=== PATIENT | male | born 1975 | race Caucasian/White ===

== ENCOUNTER 2021-04-23 10:13 | Observation (INO) ==
[2021-04-23] MEDS ORDERED: FAMOTIDINE 20MG IV PUSH 20 MG/5 ML SYR IV STA (10:45)
[2021-04-23] MEDS ORDERED: SODIUM CHLORIDE 0.9% 1000ML 1,000 ML IV ONE (10:45)
[2021-04-23] MEDS ORDERED: ONDANSETRON INJ 2 MG/ML 2 ML VIAL IV STA (10:45)
[2021-04-23 12:03] LABS: Basophils # (auto) 0.03 K/uL (0-0.2); Basophils % (auto) 0.5 %; Eosinophils # (auto) 0.37 K/uL (0-0.5); Eosinophils % (auto) 5.9 %; Hematocrit (blood only) 42.1 % (42-52); Hemoglobin 14.9 g/dL (14.0-18.0); Immature Granulocytes # (auto) 0.01 K/uL (0.00-0.02); Immature Granulocytes % (auto) 0.2 %; Lymphocytes # (auto) 1.42 K/uL (1.2-3.4); Lymphocytes % (auto) 22.7 %; Mean Corpuscular Hemoglobin 30.2 pg (25-34); Mean Corpuscular Hgb Conc 35.4 g/dL (32-36); Mean Corpuscular Volume 85.2 fL (80-100); Mean Platelet Volume 9.5 fL (7.4-10.4); Monocytes # (auto) 0.79 K/uL (0.11-0.59); Monocytes % (auto) 12.6 %; Neutrophils # (auto) 3.63 K/uL (1.4-6.5); Neutrophils % (auto) 58.1 %; Platelet Count 200 K/uL (130-400); RDW Standard Deviation 43.5 fL (36.4-46.3); Red Blood Count 4.94 M/uL (4.7-6.1); White Blood Count 6.25 K/uL (4.8-10.8)
[2021-04-23 12:24] LABS: Albumin Level 3.2 gm/dl (3.4-5.0); BUN Creatinine Ratio 15.6 (10-20); Creatinine Clr Calc Pharmacy 157.3 ml/min; Est GFR (African American) 122.8 ml/min
[2021-04-23 12:25] LABS: Potassium 3.4 mmol/L (3.5-5.1)
[2021-04-23 12:29] LABS: Albumin Globulin Ratio 0.8 (0.9-2); Bilirubin,Total 0.4 mg/dl (0.2-1); Total Protein 7.2 gm/dl (6.4-8.2); Troponin I 0.125 ng/ml (0-0.045)
[2021-04-23] MEDS ORDERED: ACETAMINOPHEN 1,000 MG/100 ML VIAL IV STA (12:36)
--- NOTE | 2021-04-23 12:47 | XRay Report ---
XR chest 2V PA/lateral CLINICAL HISTORY: abdominal pain, chest pain COMPARISON STUDY: 04/21/2021 FINDINGS: The heart is borderline enlarged. There is no failure. There is no focal pulmonary consolid ation. There are no pleural effusions. There is no evidence of free intraperitoneal air.[ IMPRESSION: No active disease in the chest. ACT 112: Negative or not required by law. Electronically signed by: Garcia Medina M.D. 04/23/2021 12:46 PM
[2021-04-23] MEDS ORDERED: AZITHROMYCIN 500 MG in DEXTROSE 5% 250 ML IV STA (14:12)
[2021-04-23] MEDS ORDERED: POTASSIUM CHLORIDE CRTAB 20 MEQ TABCR PO STA (14:35)
--- NOTE | 2021-04-23 15:42 | History & Physical Report ---
Date of Service April 23, 2021 Assessment & Plan (1) Campylobacter gastroenteritis: (2) Ileocolitis: (3) Diarrhea: (4) Fever: (5) GERD (gastroesophageal reflux disease): (6) DVT prophylaxis: Patient placed on IV antibiotics, supportive care, IV fluids, will try to feed him. History of Present Illness Chief Complaint: Chest pain, nausea, vomiting, diarrhea Primary Care Provider: Zaheer Freeman MD 45-year-old male with a past medical history of hypertension and occasional dysphagia who comes in today complaining of nausea, vomiting, and diarrhea. He was here earlier this week complaining of the same symptoms and sent home on doxycycline. Today he returns and coincidently they were going to call him to tell him he was positive for Campylobacter. He has been sick since Sunday, he is having abdominal pain, chest pain, nausea vomiting and diarrhea and he was not getting any better so he came back today to be reevaluated. past medical history-hypertension, occasional dysphagia Past surgical historycholecystectomy, tonsils and adenoids been removed, sinus surgery, left knee surgery from trauma No known drug allergies Medications are omeprazole and chlorthalidone Family historyFather had CAD and of suicide, mother is alive and relatively healthy he has a healthy son Social historysmokes 2 to 3 packs a day at times for 20 years quit in August 2020, he is , denies alcohol or drug use Allergies Allergy/AdvReac Type Severity Reaction Status Date / Time No Known Allergies Allergy Verified 04/23/21 11:23 Home Medications Medication Instructions Recorded Confirmed Type omeprazole 20 mg PO PM 02/14/19 04/23/21 History chlorthalidone 25 mg PO HS 04/21/21 04/23/21 History doxycycline hyclate 100 mg PO Q12H 7 Days #14 cap 04/21/21 04/23/21 Rx potassium chloride [Klor-Con M20] 20 meq PO TID #9 tabs 04/21/21 04/23/21 Rx Past Med/Surg History Medical History Stomach problems Surgical History No significant past surgical history Family History Other Cancer Gallbladder disease Hypertension Social History Smoking Status: Former smoker marital status: Current Living Situation: Spouse current occupational status: employed Feels Safe at Home: Yes Review of Systems Review of Systems: ROS-No Headache, No Visual Changes, positive nausea, positive vomiting, No Fever, positive chills, No Neck Pain or Stiffness, positive chest Pain, No Palpitations, No SOB, No WEBB, No Cough, No Sputum, No Wheezing, positive abdominal Pain, No Diarrhea, No Hematemesis, No Hemoptysis, No Unexpected Weight Loss, No Flank pain, No Melena, No Hematochezia, No Frequency, No Urgency, No Burning, No Hematuria, No Rashes, No Diaphoresis. Appetite is Normal Physical Exam Physical Exam: Physical Exam Gen-AAO x 3, NAD, Afebrile Head-NCAT, EOMI, PERRLA, Anicteric Sclera, No Posterior Pharyngeal Erythema Neck-Supple, No JVD, No Thyromegaly, No Masses, No LAD, No Bruits Lungs-Clear to Auscultation Bilaterally, No Rales, No Rhonchi, No Wheezing, No Crepitus Chest-No S4, +S1, +S2, No S3, No Murmurs, No Rubs, No Gallops, No Ectopy Abdomen-Soft, Bowel Sounds Present, Tender, Non Distended, No Hepatomegaly, No Splenomegaly, No Palpable Masses, No Rebound, No Rigidity, No Guarding Musculoskeletal-Full Range of Motion Bilaterally, No CVAT Extremities-No Cyanosis, No Clubbing, No Edema Nuero-Cranial Nerves II-XII grossly intact, Motor WNL, DTRs WNL, Strength WNL, Non Focal Psych-Normal Mood Results & Data Results & Data ([facility]) Vital Signs (Past 12 Hours) Vital Signs Temp Pulse Pulse Resp BP BP Pulse Ox 04/23/21 14:00 61 17 127/79 98 04/23/21 13:00 58 L 20 141/88 H 97 04/23/21 12:54 59 L 20 131/88 97 04/23/21 12:00 62 18 131/88 93 04/23/21 11:55 61 21 128/77 93 04/23/21 10:46 93 04/23/21 10:27 36.8 C 65 18 136/93 96 04/23/21 10:14 36.8 C 73 18 176/93 H 98 Allergies No Known Allergies Allergy (Verified 04/23/21 11:23) Height/Weight/Isolation Height 6 ft 3 in Weight 124 kg Chemistry 04/23/21 11:36 Sodium 138 Potassium 3.4 L D Chloride 105 Carbon Dioxide 29 Anion Gap 5.0 BUN 13 Creatinine 0.85 Glucose 93 Code Status & VTE Plan VTE Prophylaxis Plan VTE Prophylaxis will be ordered: Yes
--- NOTE | 2021-04-23 16:33 | Emergency Department Note ---
History of Present Illness General Chief complaint: Illness Stated complaint: CHEST PAIN,VOMITING,DIARRHEA ABD PAIN,HEADACHE Time Seen by Provider: 04/23/21 10:33 Source: patient Mode of arrival: ambulatory Limitations: no limitations History of Present Illness Maximum Pain Intensity: 4 This patient is a 45-year-old male who presents to the emergency department for evaluation of diarrhea, vomiting, dehydration, headache and chest pain. Patient was seen here a few days ago for similar symptoms. He states that he was feeling better on discharge, but his symptoms returned and worsened today. He has been vomiting today and is unable to keep anything down. He has pain in his upper abdomen and burning pain throughout his chest. He states that his "kidneys hurt" but points to his lower back. He has had continued diarrhea, denies any blood in the stools. He was placed on doxycycline for possible tickborne illness but has been unable to keep this medication down. He rates his discomfort 7/10. He states that he feels very weak and dehydrated. Home Medications Medication Instructions Recorded Confirmed Type omeprazole 20 mg PO PM 02/14/19 04/23/21 History chlorthalidone 25 mg PO HS 04/21/21 04/23/21 History potassium chloride [Klor-Con M20] 20 meq PO TID #9 tabs 04/21/21 04/23/21 Rx azithromycin 500 mg PO DAILY 5 Days #5 tab 04/24/21 Rx Allergies Allergy/AdvReac Type Severity Reaction Status Date / Time No Known Allergies Allergy Verified 04/23/21 11:23 Past Med/Surg History Medical History Stomach problems Surgical History No significant past surgical history Family History Other Cancer Gallbladder disease Hypertension Social History Smoking Status: Former smoker Second Hand Exposure: No; Do You Dip or Chew Tobacco: Yes; Hx Alcohol Use: Yes Hx Substance Use: No Preferred Language: Kosovan Communication Ability: Effective School Cleaner Required: No Beliefs That Will Affect Care: None marital status: Current Living Situation: Spouse current occupational status: employed Other Information That Helps Us Care for You: No Feels Safe at Home: Yes Safety Concerns: Feels Safe At This Time Assistive Devices: None Review of Systems A total of 10 systems reviewed and were otherwise negative Physical Exam Vital Signs Vital Signs - 24 hr 04/23/21 10:14 04/23/21 10:27 04/23/21 10:46 Temperature 36.8 C 36.8 C Temperature Source Temporal Artery Scan Temporal Artery Scan Pulse Rate 73 65 Pulse Rate [Apical] Pulse Rate from SpO2 Sensor Respiratory Rate 18 18 Blood Pressure 176/93 H 136/93 Blood Pressure [Right Arm] Blood Pressure Mean 120 107 Blood Pressure Mean [Right Arm] Pulse Oximetry 98 96 93 Oxygen Delivery Method Room Air Room Air Room Air Sepsis Recent Fever Within 48 Hours No No Sepsis New/Unexplained Change in Mental Status No No Sepsis Action Taken by Nursing No Action Required No Action Required 04/23/21 11:55 04/23/21 12:00 04/23/21 12:54 Temperature Temperature Source Pulse Rate 61 62 Pulse Rate [Apical] 59 L Pulse Rate from SpO2 Sensor 61 61 Respiratory Rate 21 18 20 Blood Pressure 128/77 131/88 Blood Pressure [Right Arm] 131/88 Blood Pressure Mean 94 102 Blood Pressure Mean [Right Arm] 102 Pulse Oximetry 93 93 97 Oxygen Delivery Method Room Air Sepsis Recent Fever Within 48 Hours Sepsis New/Unexplained Change in Mental Status Sepsis Action Taken by Nursing 04/23/21 13:00 04/23/21 14:00 04/23/21 14:30 Temperature Temperature Source Pulse Rate 58 L 61 61 Pulse Rate [Apical] Pulse Rate from SpO2 Sensor 59 L 61 Respiratory Rate 20 17 16 Blood Pressure 141/88 H 127/79 Blood Pressure [Right Arm] Blood Pressure Mean 105 95 Blood Pressure Mean [Right Arm] Pulse Oximetry 97 98 98 Oxygen Delivery Method Sepsis Recent Fever Within 48 Hours Sepsis New/Unexplained Change in Mental Status Sepsis Action Taken by Nursing 04/23/21 15:01 04/23/21 15:30 04/23/21 16:00 Temperature Temperature Source Pulse Rate 61 61 61 Pulse Rate [Apical] Pulse Rate from SpO2 Sensor 61 Respiratory Rate 16 18 23 Blood Pressure Blood Pressure [Right Arm] Blood Pressure Mean Blood Pressure Mean [Right Arm] Pulse Oximetry 96 Oxygen Delivery Method Sepsis Recent Fever Within 48 Hours Sepsis New/Unexplained Change in Mental Status Sepsis Action Taken by Nursing VITALS: Vitals are noted on the nurse's note and reviewed by myself. GENERAL: This is a 45-year-old male, in no acute distress, well-developed well- nourished. SKIN: The skin was without rashes. EARS: External auditory canals clear, tympanic membranes pearly leiva without erythema or effusion bilaterally. EYES: Pupils equal round and reactive to light and accommodation. NOSE: Patent, turbinates without inflammation or discharge. MOUTH: Mucous membranes somewhat dry. NECK: Supple without nuchal rigidity. No lymphadenopathy. HEART: Regular rate and rhythm without murmurs gallops or rubs. LUNGS: Clear to auscultation bilaterally without wheezes, rales or rhonchi. ABDOMEN: Positive bowel sounds x 4. Soft, mild tenderness across lower abdomen. No guarding or rebound tenderness. NEURO: Patient was alert and oriented to person place and time. Course Consultations Consultation #1: Dr. Carlisle [facility] hospitalist Administered Medications Discontinued Medications Chlorthalidone (Chlorthalidone 25 Mg Tab) 25 mg PO HS JACQUELYN Stop: 05/23/21 20:59 Last Admin: 04/23/21 20:01 Dose: 25 mg Documented by: [id number] Heparin Sodium (Porcine) (Heparin Sod 5,000 Unit/0.5 Ml Vial) 5,000 units SQ Q8 JACQUELYN Stop: 05/23/21 21:59 Last Admin: 04/24/21 04:28 Dose: 5,000 units Documented by: [id number] Admin: 04/23/21 20:02 Dose: 5,000 units Documented by: [id number] Sodium Chloride (Nss 1000ml) 1,000 mls @ 999 mls/hr IV .Q1H1M ONE Stop: 04/23/21 11:45 Last Infusion: 04/23/21 12:53 Dose: 0 mls/hr Documented by: [id number] Admin: 04/23/21 11:40 Dose: 999 mls/hr Documented by: [id number] Famotidine (Pepcid 20mg Iv Push) 20 mg in 5 mls @ 2.5 mls/min IV NOW STA Stop: 04/23/21 10:46 Last Admin: 04/23/21 11:42 Dose: 2.5 mls/min Documented by: [id number] Acetaminophen (Ofirmev) 1,000 mg in 100 mls @ 400 mls/hr IV NOW STA Stop: 04/23/21 12:50 Last Infusion: 04/23/21 13:11 Dose: 0 mls/hr Documented by: [id number] Admin: 04/23/21 12:53 Dose: 400 mls/hr Documented by: [id number] Azithromycin 500 mg/ Dextrose 255 mls @ 127.5 mls/hr IV NOW STA Stop: 04/23/21 16:11 Last Infusion: 04/23/21 18:17 Dose: 0 mls/hr Documented by: [id number] Admin: 04/23/21 15:08 Dose: 127.5 mls/hr Documented by: [id number] Sodium Chloride (Nss 1000ml) 1,000 mls @ 125 mls/hr IV .Q8H JACQUELYN Stop: 04/24/21 09:59 Last Infusion: 04/24/21 08:07 Dose: 0 mls/hr Documented by: [id number] Admin: 04/24/21 01:41 Dose: 125 mls/hr Documented by: [id number] Infusion: 04/24/21 01:41 Dose: 125 mls/hr Documented by: [id number] Admin: 04/23/21 18:25 Dose: 125 mls/hr Documented by: [id number] Azithromycin 500 mg/ Dextrose 255 mls @ 127.5 mls/hr IV Q24H JACQUELYN; Protocol Stop: 05/03/21 08:59 Last Admin: 04/24/21 08:03 Dose: Not Given Documented by: [id number] Melatonin (Melatonin 3 Mg Tab) 3 mg PO HS PRN PRN Reason: Sleep Stop: 05/23/21 21:19 Last Admin: 04/23/21 21:37 Dose: 3 mg Documented by: [id number] Ondansetron HCl (Ondansetron Inj 2 Mg/Ml 2 Ml Vial) 4 mg IV NOW STA Stop: 04/23/21 10:46 Last Admin: 04/23/21 11:40 Dose: 4 mg Documented by: [id number] Pantoprazole Sodium (Pantoprazole 40 Mg Tab) 40 mg PO PM JACQUELYN Stop: 05/23/21 20:59 Last Admin: 04/23/21 20:02 Dose: 40 mg Documented by: [id number] Potassium Chloride (Potassium Chloride Crtab 20 Meq Tabcr) 40 meq PO NOW STA Stop: 04/23/21 14:36 Last Admin: 04/23/21 15:08 Dose: 40 meq Documented by: [id number] Potassium Chloride (Potassium Chloride Crtab 20 Meq Tabcr) 20 meq PO TID JACQUELYN Stop: 05/23/21 20:59 Last Admin: 04/24/21 08:08 Dose: 20 meq Documented by: [id number] Admin: 04/23/21 20:01 Dose: 20 meq Documented by: [id number] Medical Decision Making Differential Diagnosis Gastroenteritis, food borne illness, infections, appendicitis, diverticulitis, inflammatory bowel disease, obstruction, GI bleed, biliary pathology, volvulus, as well as other pathologies. Home Medications Current Medication List: was personally reviewed by me Laboratory Data Attestation: I reviewed the patient's lab results. Result diagrams: 04/24/21 06:50 04/24/21 06:50 Lab Results 04/23/21 04/23/21 04/23/21 Range/Units 11:36 11:36 13:02 WBC 6.25 (4.8-10.8) K/uL RBC 4.94 (4.7-6.1) M/uL Hgb 14.9 (14.0-18.0) g/dL Hct 42.1 (42-52) % MCV 85.2 (80-100) fL MCH 30.2 (25-34) pg MCHC 35.4 (32-36) g/dL RDW Std Deviation 43.5 (36.4-46.3) fL RDW Coeff of Sukhdev 14.0 (11.5-14.5) % Plt Count 200 (130-400) K/uL MPV 9.5 (7.4-10.4) fL Immature Gran % (Auto) 0.2 % Neut % (Auto) 58.1 % Lymph % (Auto) 22.7 % Brooks % (Auto) 12.6 % Eos % (Auto) 5.9 % Baso % (Auto) 0.5 % Neut # (Auto) 3.63 (1.4-6.5) K/uL Lymph # (Auto) 1.42 (1.2-3.4) K/uL Brooks # (Auto) 0.79 H (0.11-0.59) K/uL Eos # (Auto) 0.37 (0-0.5) K/uL Baso # (Auto) 0.03 (0-0.2) K/uL Immature Gran # (Auto) 0.01 (0.00-0.02) K/uL Sodium 138 (136-145) mmol/L Potassium 3.4 L D (3.5-5.1) mmol/L Chloride 105 (98-107) mmol/L Carbon Dioxide 29 (21-32) mmol/L Anion Gap 5.0 (3-11) BUN 13 (7-18) mg/dl Creatinine 0.85 (0.6-1.4) mg/dl Est Cr Clr Drug Dosing 157.3 ml/min Est GFR ( Amer) 122.8 ml/min Est GFR (Non-Af Amer) 106.0 ml/min BUN/Creatinine Ratio 15.6 (10-20) Glucose 93 (70-99) mg/dl Lactate 1.0 (0.4-2.0) mmol/L Calcium 9.0 (8.5-10.1) mg/dl Total Bilirubin 0.4 D (0.2-1) mg/dl AST 20 (15-37) U/L ALT 15 (12-78) U/L Alkaline Phosphatase 77 (45-117) U/L Troponin I 0.125 H* (0-0.045) ng/ml Total Protein 7.2 (6.4-8.2) gm/dl Albumin 3.2 L (3.4-5.0) gm/dl Globulin 4.0 (2.5-4.0) gm/dl Albumin/Globulin Ratio 0.8 L (0.9-2) Lipase 151 (73-393) U/L Specimen Hemolysis COVID-19 Eval Order SARS-CoV-2 (PCR) (Negative) 04/23/21 04/23/21 Range/Units 14:30 14:30 WBC (4.8-10.8) K/uL RBC (4.7-6.1) M/uL Hgb (14.0-18.0) g/dL Hct (42-52) % MCV (80-100) fL MCH (25-34) pg MCHC (32-36) g/dL RDW Std Deviation (36.4-46.3) fL RDW Coeff of Sukhdev (11.5-14.5) % Plt Count (130-400) K/uL MPV (7.4-10.4) fL Immature Gran % (Auto) % Neut % (Auto) % Lymph % (Auto) % Brooks % (Auto) % Eos % (Auto) % Baso % (Auto) % Neut # (Auto) (1.4-6.5) K/uL Lymph # (Auto) (1.2-3.4) K/uL Brooks # (Auto) (0.11-0.59) K/uL Eos # (Auto) (0-0.5) K/uL Baso # (Auto) (0-0.2) K/uL Immature Gran # (Auto) (0.00-0.02) K/uL Sodium (136-145) mmol/L Potassium (3.5-5.1) mmol/L Chloride (98-107) mmol/L Carbon Dioxide (21-32) mmol/L Anion Gap (3-11) BUN (7-18) mg/dl Creatinine (0.6-1.4) mg/dl Est Cr Clr Drug Dosing ml/min Est GFR ( Amer) ml/min Est GFR (Non-Af Amer) ml/min BUN/Creatinine Ratio (10-20) Glucose (70-99) mg/dl Lactate (0.4-2.0) mmol/L Calcium (8.5-10.1) mg/dl Total Bilirubin (0.2-1) mg/dl AST (15-37) U/L ALT (12-78) U/L Alkaline Phosphatase (45-117) U/L Troponin I (0-0.045) ng/ml Total Protein (6.4-8.2) gm/dl Albumin (3.4-5.0) gm/dl Globulin (2.5-4.0) gm/dl Albumin/Globulin Ratio (0.9-2) Lipase (73-393) U/L Specimen Hemolysis COVID-19 Eval Order Covid19 at [facility] SARS-CoV-2 (PCR) NEGATIVE (Negative) Imaging Data Attestation: I personally reviewed and interpreted this imaging study as follows: Radiologist's Impression: Chest X-Ray 04/23/21 10:45 XR chest 2V PA/lateral CLINICAL HISTORY: abdominal pain, chest pain COMPARISON STUDY: 04/21/2021 FINDINGS: The heart is borderline enlarged. There is no failure. There is no focal pulmonary consolidation. There are no pleural effusions. There is no evidence of free intraperitoneal air.[ IMPRESSION: No active disease in the chest. ACT 112: Negative or not required by law. Electronically signed by: Garcia Medina M.D. 04/23/2021 12:46 PM MDM Narrative Continuous alarm security or surveillance monitor: Order was placed for continuous alarm security or surveillance monitor. Patient was placed on the alarm security or surveillance monitor. Patient was noted to be in normal sinus rhythm at an initial rate of 65 bpm. The patient is a 45-year-old male who presents today complaining of abdominal cramping, diarrhea, vomiting, chest pain and headaches. Patient was seen here 2 days ago for the same symptoms. He tested positive for Campylobacter and was informed of this. Labs today are unremarkable except for an elevated troponin. Given patient's chest pain and elevated troponin, I do feel he should be kept for admission/observation to trend the troponin. He was given IV hydration and Toradol. He verbalized understanding of my assessment and treatment plan. [facility] the patient. Impression & Plan Campylobacter gastroenteritis, Elevated troponin Discharge Plan Visit Data Chief Complaint: Illness Stated Complaint: CHEST PAIN,VOMITING,DIARRHEA ABD PAIN,HEADACHE ED Provider: Jason Hendrix ED Midlevel Provider: Anna Butler Discharge Problem: Campylobacter gastroenteritis, Elevated troponin Patient Disposition: Admitted As Inpatient Condition: Good Discharge Instructions Interventions: ED Discharge Assessment Last Done: 04/23/21 16:57
[2021-04-23] MEDS ORDERED: ACETAMINOPHEN 325 MG TAB PO PRN (17:39)
[2021-04-23] MEDS: SODIUM CHLORIDE 0.9% 1000ML 1,000 ML IV SCH (18:25)
[2021-04-23 19:46] LABS: Appearance Urine Clear (Clear); Blood Urine Negative (Negative); Color Urine Dark Yellow; Glucose Urine UA Negative (Negative); Ketones Urine Negative (Negative); Leukocyte Esterase Urine Negative (Negative); Nitrite Urine Negative (Negative); Protein Urine Negative (Negative); Specific Gravity Urine 1.043 (1.000-1.030); Urobilinogen Urine Negative (Negative); pH Urine 5.5 (4.5-7.5)
[2021-04-23 19:51] LABS: Bilirubin Urine 1+ (Negative)
[2021-04-23] MEDS: POTASSIUM CHLORIDE CRTAB 20 MEQ TABCR PO SCH (20:01)
[2021-04-23] MEDS: HEPARIN SOD 5,000 UNIT/0.5 ML VIAL SQ SCH (20:02)
[2021-04-23] MEDS ORDERED: CHLORTHALIDONE 25 MG TAB PO SCH (21:00)
[2021-04-23] MEDS ORDERED: PANTOprazole 40 MG TAB PO SCH (21:00)
[2021-04-23] MEDS ORDERED: MELATONIN 3 MG TAB PO PRN (21:20)
[2021-04-24] MEDS: SODIUM CHLORIDE 0.9% 1000ML 1,000 ML IV SCH (01:41)
[2021-04-24] MEDS: HEPARIN SOD 5,000 UNIT/0.5 ML VIAL SQ SCH (04:28)
[2021-04-24 07:10] LABS: Hematocrit (blood only) 37.3 % (42-52); Hemoglobin 12.8 g/dL (14.0-18.0); Mean Corpuscular Hemoglobin 29.6 pg (25-34); Mean Corpuscular Hgb Conc 34.3 g/dL (32-36); Mean Corpuscular Volume 86.1 fL (80-100); Mean Platelet Volume 9.4 fL (7.4-10.4); Platelet Count 190 K/uL (130-400); RDW Standard Deviation 44.2 fL (36.4-46.3); Red Blood Count 4.33 M/uL (4.7-6.1); White Blood Count 4.41 K/uL (4.8-10.8)
[2021-04-24 07:31] LABS: Calcium 8.5 mg/dl (8.5-10.1); Est GFR (African American) 126.6 ml/min; Est GFR (Non-African American) 109.2 ml/min; Potassium 3.4 mmol/L (3.5-5.1)
--- NOTE | 2021-04-24 07:35 | Discharge Summary ---
Date of Service April 24, 2021 Admission HPI Per Admitting Provider 45-year-old male with a past medical history of hypertension and occasional dysphagia who comes in today complaining of nausea, vomiting, and diarrhea. He was here earlier this week complaining of the same symptoms and sent home on doxycycline. Today he returns and coincidently they were going to call him to tell him he was positive for Campylobacter. He has been sick since Sunday, he is having abdominal pain, chest pain, nausea vomiting and diarrhea and he was not getting any better so he came back today to be reevaluated. past medical history-hypertension, occasional dysphagia Past surgical historycholecystectomy, tonsils and adenoids been removed, sinus surgery, left knee surgery from trauma No known drug allergies Medications are omeprazole and chlorthalidone Family historyFather had CAD and of suicide, mother is alive and relatively healthy he has a healthy son Social historysmokes 2 to 3 packs a day at times for 20 years quit in August 2020, he is , denies alcohol or drug use Admission Exam Per Admitting Provider ROS-No Headache, No Visual Changes, + Nausea, + Vomiting, No Fever, + Chills, No Neck Pain or Stiffness, No Chest Pain, No Palpitations, No SOB, No WEBB, No Cough, No Sputum, No Wheezing, + Abdominal Pain, + Diarrhea, No Hematemesis, No Hemoptysis, No Unexpected Weight Loss, No Flank pain, No Melena, No Hematochezia, No Frequency, No Urgency, No Burning, No Hematuria, No Rashes, No Diaphoresis. Appetite is Normal Physical Exam Gen-AAO x 3, NAD, Afebrile Head-NCAT, EOMI, PERRLA, Anicteric Sclera, No Posterior Pharyngeal Erythema Neck-Supple, No JVD, No Thyromegaly, No Masses, No LAD, No Bruits Lungs-Clear to Auscultation Bilaterally, No Rales, No Rhonchi, No Wheezing, No Crepitus Chest-No S4, +S1, +S2, No S3, No Murmurs, No Rubs, No Gallops, No Ectopy Abdomen-Soft, Bowel Sounds Present, Tender, Non Distended, No Hepatomegaly, No Splenomegaly, No Palpable Masses, No Rebound, No Rigidity, No Guarding Musculoskeletal-Full Range of Motion Bilaterally, No CVAT Extremities-No Cyanosis, No Clubbing, No Edema Nuero-Cranial Nerves II-XII grossly intact, Motor WNL, DTRs WNL, Strength WNL, Non Focal Psych-Normal Mood Principal Diagnosis Campylobacter Gastroenteritis Discharge Exam ROS-No Headache, No Visual Changes, No Nausea, No Vomiting, No Fever, No Chills, No Neck Pain or Stiffness, No Chest Pain, No Palpitations, No SOB, No WEBB, No Cough, No Sputum, No Wheezing, No Abdominal Pain, No Diarrhea, No Hematemesis, No Hemoptysis, No Unexpected Weight Loss, No Flank pain, No Melena, No Hemat ochezia, No Frequency, No Urgency, No Burning, No Hematuria, No Rashes, No Diaphoresis. Appetite is Normal Physical Exam Gen-AAO x 3, NAD, Afebrile Head-NCAT, EOMI, PERRLA, Anicteric Sclera, No Posterior Pharyngeal Erythema Neck-Supple, No JVD, No Thyromegaly, No Masses, No LAD, No Bruits Lungs-Clear to Auscultation Bilaterally, No Rales, No Rhonchi, No Wheezing, No Crepitus Chest-No S4, +S1, +S2, No S3, No Murmurs, No Rubs, No Gallops, No Ectopy Abdomen-Soft, Bowel Sounds Present, Non Tender, Non Distended, No Hepatomegaly, No Splenomegaly, No Palpable Masses, No Rebound, No Rigidity, No Guarding Musculoskeletal-Full Range of Motion Bilaterally, No CVAT Extremities-No Cyanosis, No Clubbing, No Edema Nuero-Cranial Nerves II-XII grossly intact, Motor WNL, DTRs WNL, Strength WNL, Non Focal Psych-Normal Mood Discharge Data Allergies Allergy/AdvReac Type Severity Reaction Status Date / Time No Known Allergies Allergy Verified 04/23/21 11:23 Consultations 04/23/21 14:15 ED Decision to Admit Stat Hospital Course (1) Campylobacter gastroenteritis: (2) Ileocolitis: (3) Diarrhea: (4) Fever: (5) GERD (gastroesophageal reflux disease): (6) DVT prophylaxis: DC on Zithromax Total Time Total Time Spent Total Time Spent (In Minutes): 45 mins Total Time Includes: Examination of the Patient, Discharge Planning and Medication Reconciliation Discharge Plan Discharge Items Patient Disposition: Home - Self-Care Reason For Visit: DEHYDRATION,CAMPYLOBACTER COLITIS,TROP ELEV Discharge Diagnosis: Campylobacter Gastrenteritis Condition on Discharge: Good Activity: Resume your previous activity Lifting: Gradually increase as tolerated Bathing: No limitations Sexual Activity: When tolerated Exercise/Sports: Gradually increase as tolerated Driving/Machine Use: No limitations Weightbearing: Full weightbearing Non-emergency contact: Primary Care Provider Call non-emergency contact if: you have any medication questions Follow-up/Referrals: Zaheer Freeman MD [Primary Care Provider] - Diet: Regular Addtl Attending Provider Instructions: None Pending Studies at Discharge: No Stand-Alone Forms: My [facility] [employer], Smoking Cessation Medications and DC Order Prescriptions: New azithromycin 500 mg tablet 500 mg PO DAILY 5 Days Qty: 5 RF: 0 Continued omeprazole 20 mg capsule,delayed release(DR/EC) 20 mg PO PM RF: 0 chlorthalidone 25 mg tablet 25 mg PO HS RF: 0 potassium chloride [Klor-Con M20] 20 mEq tablet,ER particles/crystals 20 meq PO TID Qty: 9 RF: 0 Discontinued doxycycline hyclate 100 mg capsule 100 mg PO Q12H 7 Days Qty: 14 RF: 0 Discharge Orders: Discharge Order (Routine); Ordered 04/24/21 Ordered By: Jony Carlisle Admission Data Admit Date/Time: 04/23/21 14:35 Attending Provider: Jony Carlisle Admit Provider: Jony Carlisle Primary Care Provider: Zaheer Freeman Other Providers: Jony Carlisle
[2021-04-24] MEDS: POTASSIUM CHLORIDE CRTAB 20 MEQ TABCR PO SCH (08:08)
[2021-04-24] MEDS ORDERED: AZITHROMYCIN 500 MG in DEXTROSE 5% 250 ML IV SCH (09:00)
--- NOTE | 2021-04-25 13:34 | Electrocardiogram Report ---
Test Reason : Blood Pressure : / mmHG Vent. Rate : 060 BPM Atrial Rate : 060 BPM P-R Int : 220 ms QRS Dur : 182 ms QT Int : 510 ms P-R-T Axes : 016 048 018 degrees QTc Int : 510 ms Sinus rhythm with 1st degree A-V block Right bundle branch block Left ventricular hypertrophy with repolarization abnormality Septal infarct , age undetermined Abnormal ECG When compared with ECG of 14-FEB-2019 22:02, No significant change was found Confirmed by Calos Gordillo ([id number]) on 04/25/2021 1:34:28 PM Referred By: REFERRED SELF Confirmed By:Calos Gordillo
== END 2021-04-24 09:37 | disposition home or self-care (01) ==
LOC: ED 10:13 → 2W 10:13